=== PATIENT | female | born 1995 | race Caucasian/White ===

== ENCOUNTER 2022-03-31 09:53 | Emergency (ER) | payer SELFPAY ==
[2022-03-31 10:05] VITALS: BP 120/69; PULSE 100; RESP 18; TEMP 36.7; O2SAT 99; BMI 37.8
--- NOTE | 2022-03-31 10:16 | XR_ITS ---
PROCEDURE INFORMATION: Exam: XR Right Knee Exam date and time: 03/31/2022 10:25 AM Age: 26 years old Clinical indication: Injury or trauma; Other: Jumped down from [place]; Swelling (edema); Knee; Right; Injury date: 03/30/22; Additional info: Jumped off of [email or web address]- pain and swelling- PT is 6 months signed consent and was double shielded TECHNIQUE: Imaging protocol: XR Right knee. Views: 3 views. COMPARISON: No relevant prior studies available. FINDINGS: Bones/joints: Mild medial compartment narrowing. No evidence of an acute fracture. Moderate joint effusion. Soft tissues: Mild soft tissue swelling in the patellar tendon region. IMPRESSION: 1. No evidence of an acute fracture. 2. Moderate knee joint effusion.
--- NOTE | 2022-03-31 10:16 | XR_ITS ---
PROCEDURE INFORMATION: Exam: XR Right Tibia and Fibula Exam date and time: 03/31/2022 10:25 AM Age: 26 years old Clinical indication: Injury or trauma; Other: Jumped off buggy; Swelling (edema); Knee; Right; Injury date: 03/30/22; Additional info: Jumped off of buggie TECHNIQUE: Imaging protocol: XR Right tibia and fibula. Views: 2 views. COMPARISON: No relevant prior studies available. FINDINGS: Bones/joints: No evidence of an acute fracture or dislocation. Knee joint effusion as noted on the dedicated knee radiographs. Soft tissues: Normal. IMPRESSION: No acute fracture.
--- NOTE | 2022-03-31 10:20 | HMH.EDUTC ---
[facility] Disposition Clinical Impression: Knee effusion, right Disposition: Home, Self-Care Condition on Discharge: Good Instructions: How to Use Crutches, Acetaminophen (Alternative Therapy), How To Perform RICE (Rest, Ice, Compress, Elevate), DI for Knee Effusion Additional Instructions: *weight bearing as tolerated *RICE, Rest the extremity, Ice 15-20 minutes 3-4 times daily, Compress- wear the ang wrap as discussed as much as possible to help reduce swelling and pain, Elevate the extremity when at rest *Knee immobilizer is for support and help control swelling, use it except in the shower. Be sure that is not to tight but not to loose either *Elevate when resting *Tylenol for pain Immediately follow up with your family doctor for new or worsening of symptoms, or no noticeable improvement over the next 3-5 days Referrals: Lucia Smith [Primary Care Provider] - As needed Jeff Galan JR, MD [Physician] - (Call office for appointment) Time of Disposition: 11:10 Medical Decision Making - Jose Martin Inquiry Pt receiving controlled substance: No Jose Martin was queried for this patient: No Vital Signs: 03/31/22 10:05 03/31/22 11:13 Temperature 98.0 F 98.0 F Temperature Source Oral Pulse Rate 100 H Pulse Rate [Right Brachial] 100 H Respiratory Rate 18 18 Blood Pressure 120/69 Blood Pressure [Right Arm] 120/69 Blood Pressure Mean [Right Arm] 86 Blood Pressure Source [Right Arm] Automatic Cuff Blood Pressure Position [Right Arm] Sitting 02 Sat by Pulse Oximetry 99 Oxygen Delivery Method Room Air - Radiology Data #1 Image(s): Knee Image Reviewed: Yes I have reviewed radiologist's interpretation IMPRESSION: 1. No evidence of an acute fracture. 2. Moderate knee joint effusion. #2 Image(s): Tib/Fib Image Reviewed: Yes I have reviewed radiologist's interpretation IMPRESSION: No acute fracture. Medical Decision Narrative: Patient educated on risks associated with shielding and xray during and patient signed consent [facility] HPI - General Stated complaint: AO 03/30/22 1700 injury to right leg Time Seen by Provider: 03/31/22 10:21 Mode of Arrival: Ambulatory Source of Information: Patient Limitations: No Limitations Description of Symptoms (Recalled from Triage Doc. by RN): PATIENT STATES THAT SHE JUMPED OFF OF HER BUGGY LAST NIGHT AND FELT/HEARD A POP IN RLE. C/O PAIN TO RIGHT KNEE AND LOWER LEG HEENT Symptoms (Recalled from RN notes): No Resp Symptoms (Recalled from RN notes): No Skin Symptoms (Recalled from RN notes): No MS Symptoms (Recalled from RN notes): Yes Functional Status (Recalled from RN notes): WNL - History of Present Illness Provider Complaint: Patient state that she jumped out of the buggy last night and when she landed she felt and heard a pop States that initially she was having pain in her right lower leg just below knee now she is having pain in the knee also States that she is 6mths OB - Related Data Allergies Allergy/AdvReac Type Severity Reaction Status Date / Time No Known Allergies Allergy Verified 03/31/22 10:20 - Worker's Comp Is this a Worker's Comp case?: No [facility] History - Hepatitis A Screen Attestation statement:: This patient has been screened for Hepatitis A risk factors. I have reviewed the patient's past medical history: Yes Laterality Cases: Bilateral: Tonsillectomy - Social History Alcohol Intake: never Occupational Status: other ROS Obtained: Yes All systems reviewed & no additional complaints, Yes Systems reviewed as appropriate & no additional complaints - Constitutional Constitutional: Reports system reviewed and no additional complaints, except as docu - ENT Ears, Nose, Mouth, and Throat: Reports system reviewed and no additional complaints, except as docu - Cardiovascular Cardiovascular: Reports system reviewed and no additional complaints, except as docu - Respiratory Respiratory: Reports system revi
[2022-03-31 11:13] VITALS: BP 120/69; PULSE 100; RESP 18; TEMP 36.7; O2SAT 99
== END 2022-03-31 11:25 | disposition home or self-care (01) ==
PROVIDERS: Emergency Provider Nurse Practitioner; PCP Nurse Practitioner Family
DX: M25.461 Effusion, right knee (principal)
CPT/HCPCS: 29515; 73562; 73590; 99212; G0463

== ENCOUNTER 2022-07-14 02:47 | Inpatient (IN) | payer SELFPAY ==
[2022-07-14 02:37] VITALS: BMI 38.0
[2022-07-14 02:45] LABS: Basophils # 0.1 K/mm3 (0-0.2); Basophils % 0.7 % (0.1-2.0); Eosinophils % 0.1 % (0.1-12.0); Hematocrit 40.4 % (37.0-47.0); Hemoglobin 13.5 g/dL (12.2-16.2); Lymphocytes # 2.6 K/mm3 (0.7-4.5); Lymphocytes % 27.7 % (10-50); Mean Corpuscular HGB Conc 33.4 g/dL (31.8-35.4); Mean Corpuscular Hemoglobin 28.5 pg (27.0-31.2); Mean Corpuscular Volume 85.3 fl (81-99); Mean Platelet Volume 8.6 fl (7.4-10.4); Monocytes # 0.5 K/mm3 (0.1-1.0); Monocytes % 5.2 % (1.7-9.3); Neutrophils # 6.2 K/mm3 (1.8-7.8); Neutrophils % 66.2 % (37.0-80.0); Platelet Count 179 K/mm3 (142-424); Red Blood Count 4.74 M/mm3 (4.20-5.40); Red Cell Distribution Width 14.2 % (11.5-17.5); White Blood Count 9.3 K/mm3 (4.8-10.8)
--- NOTE | 2022-07-14 02:50 | PC.NURSE ---
Patient refusing COVID swab.
[2022-07-14 03:45] VITALS: BP 136/78; PULSE 87; RESP 19; TEMP 36.8; O2SAT 100; BMI 38.0
[2022-07-14 05:53] LABS: Microscopic, Urine URINE MICROSCOPIC (MICROSCOPIC)
[2022-07-14 06:02] LABS: Appearance,Urine TURBID (Clear); Bilirubin,Urine Negative (Negative); Blood, Urine 3+ (Negative); Color,Urine RED (Yellow); Glucose,Urine (UA) Negative (Negative); Ketones,Urine Negative (Negative); Leukocyte Esterase,Urine Negative (Negative); Nitrate,Urine Negative (Negative); Protein,Urine 1+ (Negative); Specific Gravity, Urine 1.015 (1.005-1.030); Urobilinogen,Urine 0.2 EU/dl (0.2)
[2022-07-14 06:04] LABS: RBC,Urine TNTC #/hpf (0-3)
[2022-07-14 07:42] VITALS: BP 128/78; PULSE 94; RESP 18; TEMP 36.8; O2SAT 98
--- NOTE | 2022-07-14 10:42 | EXP.HPDC ---
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 She reports onset of labor approximately 3am on 07/13/22 but did not progress beyond 6cm between 6pm and 2am [employer] also had concerns about vaginal bleeding during delivery, so she presented to [facility] for delivery Cervix was still 6cm at admission, with reassuring status on NST and no unusual bleeding noted Pitocin augmentation was begun and amniotomy performed [facility] Medical History [facility] Surgical History H/O hernia repair Family History (Updated 07/14/22 @ 03:59 by Teena Lomeli RN) No significant family history Social History (Updated 07/14/22 @ 03:58 by Teena Lomeli RN) Smoking Status: Never smoker alcohol intake: never current occupational status: unemployed Travel in the last 8 weeks: None Review of Systems Constitutional Constitutional: Reports system reviewed and no additional complaints, except as documented and Denies headache(s) ENT Ears, Nose, Mouth, and Throat: Denies headache(s) *Genitourinary Genitourinary: Reports abnormal vaginal bleeding *Neurologic Neurologic: Denies headache(s) and Denies other visual disturbances Exam Data for Last 24 hours Vital signs and Labs for Last 24 Hours: Temp Pulse Resp BP Pulse Ox 98.2 F 94 H 18 128/78 98 07/14/22 07:42 07/14/22 07:42 07/14/22 07:42 07/14/22 07:42 07/14/22 07:42 Laboratory Results - last 24 hr 07/14/22 02:23: Urine Color Red, Urine Appearance Turbid, Urine pH 7.0, Ur Specific [place] 1.015, Urine Protein 1+, Urine Glucose (UA) Negative, Urine Ketones Negative, Urine Blood 3+, Urine Nitrate Negative, Urine Bilirubin Negative, Urine Urobilinogen 0.2, Ur Leukocyte Esterase Negative, Urine RBC Tntc, Urine WBC 5-10 07/14/22 02:35: WBC 9.3, RBC 4.74, Hgb 13.5, Hct 40.4, MCV 85.3, MCH 28.5, MCHC 33.4, RDW 14.2, Plt Count 179, MPV 8.6, Neut % (Auto) 66.2, Lymph % (Auto) 27.7, [place] % (Auto) 5.2, Eos % (Auto) 0.1, Baso % (Auto) 0.7, Neut # (Auto) 6.2, Lymph # (Auto) 2.6, [place] # (Auto) 0.5, Eos # (Auto) 0.0, Baso # (Auto) 0.1 07/14/22 02:35: Blood Type O Positive, Antibody Screen Negative I & O for Last 24 hours: Intake & Output 07/11/22 07/12/22 07/13/22 07/14/22 11:59 11:59 11:59 11:59 Weight 222 lb Constitutional Constitutional: no acute distress *Routine HEENT Exam Head: Present normocephalic Eye: Absent conjunctival icterus or scleral injection ENT: Present mucous membranes moist *Routine Neck Exam Neck: Present supple *Routine Respiratory Exam Respiratory: Present CTA bilaterally; Absent respiratory distress *Routine Cardiovascular Exam Cardiovascular: Present RRR *Routine Abdominal Exam Abdominal: Present soft; Absent tenderness or distended *Routine Rectal Exam Rectal:: deferred *Routine Genitalia Exam Genitalia:: normal female Comment:: cervix 8cm/100% Amniotomy performed with clear fluid *Routine Extremities Exam Extremities: Present edema (1+) *Routine Skin Exam Skin: Present intact and dry *Routine Neurological Exam Neurological: Present alert and oriented X3 Meds Home Medications and Allergies Home Medications Medication Instructions Recorded Confirmed Type No Known Home Medications 07/09/22 07/14/22 History New Prescriptions to Start Prescriptions: Allergies Allergy/AdvReac Type Severity Reaction Status Date / Time No Known Allergies Allergy Verified 07/10/22 09:02 Hospital Course Hospital Course Hospital Course: Pitocin augmentation was begun after arrival Amntiotomy was performed with clear fluid noted She quickly progressed to normal spontaneous
--- NOTE | 2022-07-14 11:11 | EXP.DN ---
Delivery Note Delivery Date:: 07/14/22 Delivery Time:: 09:59 Anesthesia Type: None Was labor medically induced?: No Gestational age (weeks): 41 Infant delivered prior to 39 weeks?: No Infant Gender: Female at 1 minute: 7 at 5 minutes: 9 Delivery Procedure:: Spontaneous vaginal delivery of live born female infant over intact perineum. Compound presentation with left upper extremity No nuchal cord No shoulder dystocia with delivery placed in HOMA immediately after delivery, with standard nursing assessment performed Infant Apgars: 7 & 9 Placenta spontaneously expressed and examined; noted to be complete/intact. Uterus evacuated of all clot/debris; uterine fundus firm after delivery of placenta Vulva, vagina, and cervix inspected; no lacerations present EBL: 300 cc All sponge/needle/instrument counts correct at conclusion of procedure Placental Delivery Description: Spontaneous
== END 2022-07-14 17:30 | disposition home or self-care (01) | DRG 807 ==
LOC: OBOUT 02:50 → OB 02:50
PROVIDERS: Admitting Provider Obstetrics & Gynecology; PCP Nurse Practitioner Family; Referring Provider Obstetrics & Gynecology; Visit Provider Obstetrics & Gynecology
DX: O32.6XX0 Maternal care for compound presentation, not applicable or unspecified (principal); Z37.0 Single live birth; Z3A.41 41 weeks gestation of pregnancy
CPT/HCPCS: 59409; 59025; 81001; 85025; 86850